=== PATIENT | female | born 1975 | race Caucasian/White ===

== ENCOUNTER 2017-01-21 14:07 | Inpatient (IN) | payer BC, MEDICARE ==
[~2017-01-21] VITALS: Ht 170.2 cm; Wt 93.8 kg
[2017-01-21 14:09] VITALS: BP 144/70; PULSE 98; RESP 20; TEMP 98.8; O2SAT 100
[2017-01-21 15:48] VITALS: BP 121/64; PULSE 87; RESP 18; TEMP 98.6; O2SAT 95
[2017-01-21] MEDS ORDERED: CELE20TA PO (16:39)
[2017-01-21] MEDS ORDERED: POTA-243 PO (16:39)
[2017-01-21] MEDS ORDERED: SPIRCAP INH (16:39)
[2017-01-21] MEDS ORDERED: LAMI200T PO (16:39)
[2017-01-21] MEDS ORDERED: PRIL20TA2 (16:39)
[2017-01-21 16:54] LABS: AUTOMATED NEUTROPHIL # 8.6 TH/MM3 (1.8-7.7); BASOPHIL # 0.1 TH/MM3 (0-0.2); BASOPHIL % 0.8 % (0.0-2.0); EOSINOPHIL # 0.2 TH/MM3 (0-0.4); HEMATOCRIT 42.3 % (35.0-46.0); HEMO FLAGS DIFF FINAL; LYMPH % 22.9 % (9.0-44.0); LYMPHOCYTE # 2.9 TH/MM3 (1.0-4.8); MEAN CORPUSCULAR HGB CONC 33.4 % (32.0-36.0); MONO % 5.4 % (0.0-8.0); NEUT % 68.9 % (16.0-70.0); PLATELET COUNT 220 TH/MM3 (150-450); RED BLOOD COUNT 4.55 MIL/MM3 (4.00-5.30); RED CELL DISTRIBUTION WIDTH 13.7 % (11.6-17.2); WHITE BLOOD COUNT 12.5 TH/MM3 (4.0-11.0)
[2017-01-21 17:17] LABS: AMPHETAMINE, URINE NEG (NEG); BARBITURATES, URINE NEG (NEG); COCAINE, URINE NEG (NEG)
[2017-01-21 17:21] LABS: ANION GAP 7 MEQ/L (5-15); BICARBONATE 27.5 MEQ/L (21.0-32.0); BLOOD UREA NITROGEN 4 MG/DL (7-18); CHLORIDE 109 MEQ/L (98-107); GLOMERULAR FILTRATION RATE 97 ML/MIN (>89); POTASSIUM 3.2 MEQ/L (3.5-5.1); SODIUM (NA) 143 MEQ/L (136-145)
--- NOTE | 2017-01-21 17:44 | PD ---
HPI Chief Complaint: Suicide Ideation/Attempt Time Seen by Provider: 17:44 Travel History International Travel<30 days: No Contact w/Intl Traveler<30days: No Traveled to known affect area: No History of Present Illness HPI 41-year-old female with history of depression and anxiety presents to emergency department voluntarily for psychiatric evaluation. 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 She has a plan to drink a large amount of alcohol, take pills, and "fall to sleep" in the bathtub. States this is how her mother followed through suicide. Denies any recent illnesses, fever, chills. Chest no other acute medically fit this time. PFSH Past Medical History Hx Anticoagulant Therapy: No Anxiety: Yes Depression: Yes Cardiac Catheterization: No Cardiovascular Problems: No Chemotherapy: No Cerebrovascular Accident: No Diabetes: No Diminished Hearing: No Musculoskeletal: Yes (ALS) Respiratory: No Tetanus Vaccination: < 5 Years Influenza Vaccination: Yes ?: Not LMP: 01/12/17 Menopausal: No Past Surgical History Abdominal Surgery: No Appendectomy: No Cardiac Surgery: No Cholecystectomy: Yes Coronary Artery Bypass Graft: No Coronary Stent: No Ear Surgery: No Endocrine Surgery: No Eye Surgery: No Genitourinary Surgery: No Gynecologic Surgery: No Hysterectomy: No Joint Replacement: No Mastectomy: No Neurologic Surgery: No Oral Surgery: No Prostatectomy: No Thoracic Surgery: No Tonsillectomy: Yes Tympanostomy Tube: No Valve Replacement: No Other Surgery: No Social History Alcohol Use: No Tobacco Use: No Substance Use: No Allergies-Medications (Allergen,Severity, Reaction): Coded Allergies: No Known Allergies (Unverified , 01/21/17) Reported Meds & Prescriptions Reported Meds & Active Scripts Active Reported Spiriva Handihaler (Tiotropium Inh) 18 Mcg Cap 18 Mcg INH DAILY 1 capsule = 18 mcg Prilosec (Omeprazole Magnesium) 20 Mg Tab Klor-Con 10 (Potassium Chloride) 10 Meq Tab 10 Meq PO DAILY Celexa (Citalopram Hydrobromide) 20 Mg Tab 20 Mg PO DAILY Lamictal (Lamotrigine) 200 Mg Tab 200 Mg PO BID Review of Systems Except as stated in HPI: all other systems reviewed are Neg Physical Exam Narrative GENERAL: Well-nourished female patient, in no acute distress SKIN: Warm and dry. HEAD: Atraumatic. Normocephalic. EYES: Pupils equal and round. No scleral icterus. No injection or drainage. ENT: No nasal bleeding or discharge. Mucous membranes pink and moist. NECK: Trachea midline. No JVD. CARDIOVASCULAR: Regular rate and rhythm. RESPIRATORY: No accessory muscle use. Clear to auscultation. Breath sounds equal bilaterally. GASTROINTESTINAL: Abdomen soft, non-tender, nondistended. Hepatic and splenic margins not palpable. MUSCULOSKELETAL: Extremities without clubbing, cyanosis, or edema. No obvious deformities. NEUROLOGICAL: Awake and alert. No obvious cranial nerve deficits. Motor grossly within normal limits. Five out of 5 muscle strength in the arms and legs. Normal speech. Data Data Last Documented VS Vital Signs Date Time Temp Pulse Resp B/P Pulse Ox O2 Delivery O2 Flow Rate FiO2 01/21/17 22:34 75 16 111/58 01/21/17 18:00 Room Air 01/21/17 15:48 98.6 95 Orders Complete Blood Count With Diff (01/21/17 15:22) Basic Metabolic Panel (Bmp) (01/21/17 15:22) Ed Urine Pregnancytest Poc (01/21/17 15:22) Psych Screen (01/21/17 15:22) Drug Screen, Random Urine (01/21/17 15:22) Alcohol (Ethanol) (01/21/17 15:22) Diet Regular Basic (01/21/17 Dinner) Potassium Chloride (Kcl) (01/21/17 17:45) Labs Laboratory Tests Test 01/21/17 01/21/17 15:20 16:00 Urine Opiates Screen NEG Urine Barbiturates Screen NEG Urine Amphetamines Screen NEG Urine Benzodiazepines Screen POS Urine Cocaine Screen NEG Urine Cannabinoids Screen NEG White Blood Count 12.5 TH/MM3 Red Blood Count 4.55 MIL/MM3 Hemoglobin 14.1 GM/DL Hematocrit 42.3 % Mean Corpuscular Volume 93.0 FL Mean Corpuscular Hemoglobin 31.0 PG Mean Corpuscular Hemoglobin 33.4 % Concent Red Cell Distribution Width 13.7 % Platelet Count 220 TH/MM3 Mean Platelet Volume 10.2 FL Neutrophils (%) (Auto) 68.9 % Lymphocytes (%) (Auto) 22.9 % Monocytes (%) (Auto) 5.4 % Eosinophils (%) (Auto) 2.0 % Basophils (%) (Auto) 0.8 % Neutrophils # (Auto) 8.6 TH/MM3 Lymphocytes # (Auto) 2.9 TH/MM3 Monocytes # (Auto) 0.7 TH/MM3 Eosinophils # (Auto) 0.2 TH/MM3 Basophils # (Auto) 0.1 TH/MM3 CBC Comment DIFF FINAL Differential Comment Sodium Level 143 MEQ/L Potassium Level 3.2 MEQ/L Chloride Level 109 MEQ/L Carbon Dioxide Level 27.5 MEQ/L Anion Gap 7 MEQ/L Blood Urea Nitrogen 4 MG/DL Creatinine 0.67 MG/DL Estimat Glomerular Filtration 97 ML/MIN Rate Random Glucose 78 MG/DL Calcium Level 8.3 MG/DL Ethyl Alcohol Level LESS THAN 3 MG/DL MDM Medical Decision Making Medical Screen Exam Complete: Yes Emergency Medical Condition: Yes Medical Record Reviewed: Yes Differential Diagnosis Mood disorder versus personality disorder versus adjustment reaction disorder Narrative Course 41-year-old female presents to emergency department voluntarily for psychiatric evaluation. Patient appears without distress. Patient is with mild hypokalemia 3.2. Toxicology is positive for benzodiazepine. EtOH is less than 3. Patient is medically cleared for psychiatric screening for further evaluation and disposition. Mental health screening discussed with the patient. Psychiatric screen ordered. Diagnosis Primary Impression: Depressed Qualified Code: F32.9 - Depression, unspecified depression type Additional Impression: Suicidal thoughts Condition: Stable Ann Woodson Jan 21, 2017 17:44
[2017-01-21] MEDS ORDERED: POTASSIUM CHLORIDE 20 MEQ CONTROLLED RELEASE TAB PO ONE (17:45)
[2017-01-21 18:00] VITALS: BP 119/57; PULSE 81; RESP 18
[2017-01-21 22:34] VITALS: BP 111/58; PULSE 75; RESP 16
[2017-01-22 02:26] VITALS: BP 113/56; PULSE 82; RESP 18; O2SAT 97
[2017-01-22 10:12] VITALS: BP 125/70; PULSE 76; RESP 18
[2017-01-22 14:00] VITALS: BP 136/60; PULSE 73; RESP 17
[2017-01-22] MEDS ORDERED: traZODone HCL 50 MG TAB PO PRN (16:30)
[2017-01-22] MEDS ORDERED: LORazepam 0.5 MG TAB PO PRN (16:30)
[2017-01-22] MEDS ORDERED: ALUMINUM/MAGNESIUM/SIMETH 30 ML CUP PO PRN (16:30)
[2017-01-22] MEDS ORDERED: ACETAMINOPHEN 325 MG TAB PO PRN (16:30)
[2017-01-22] MEDS ORDERED: LORazepam 1 MG TAB PO PRN (16:30)
[2017-01-22] MEDS ORDERED: MAGNESIUM HYDROXIDE SUSP 30 ML CUP PO PRN (16:30)
[2017-01-22] MEDS ORDERED: LORazepam 2 MG/ML VIAL IM PRN ×2 (16:30)
[2017-01-22] MEDS: TIOTROPIUM BROMIDE 18 MCG INH INH SCH (16:45)
--- NOTE | 2017-01-22 16:49 | HHI.HP ---
Provisional Diagnosis Admission Date [place] I. Major depression, single episode, severe, without psychotic features. Certification of Person's Competence To Provide Express and Informed Consent I have personally examined Madhuri Sampson , a person being served at [facility] on, Jan 22, 2017 16:37. Express and informed consent means consent voluntarily given in writing, by a competent person, after sufficient explanation and disclosure of the subject matter involved to enable the person to make a knowing and willful decision without any element of force, fraud, deceit, duress, or other form of constraint or coercion. This person is 18 years of age or older, is not now known to be incompetent to consent to treatment with a guardian advocate, and does not have a health care surrogate or proxy currently making medical treatment decisions. I have found this person to be one of the following: [X] Competent to provide express and informed consent, as defined above, for voluntary admission to this facility and is competent to provide express and informed consent for treatment. He/she has the consistent capacity to make well reasoned, willful, and knowing decisions concerning his or her medical or mental health treatment. The person fully and consistently understands the purpose of the admission for examination/placement and is fully capable of personally exercising all rights assured [place] Incompetent to provide express and informed consent to voluntary admission, and this is incompetent to provide express and informed consent to treatment. The person must be transferred to involuntary status and a petition for a guardian advocate filed with the Circuit Court. [] Refusing to provide express and informed consent to voluntary admission but is competent to provide express and informed consent for treatment. The person must be discharged or transferred to involuntary status. Form shall be completed within 24 hours of a person's arrival at the receiving facility and filed in the clinical record of each person: 1. Admitted on a voluntary basis 2. Permitted to provide express and informed consent to his/her own treatment 3. Allowed to transfer from involuntary to voluntary status 4. Prior to permitting a person to consent to his or her own treatment after having been previously found incompetent to consent to treatment. History of Present Illness Capacity: Has Capacity HPI This is a 41-year-old female who is being admitted voluntarily for multiple symptoms of depression and suicidality with plan. The patient reports that she has experienced several months of increasing depression with depressed mood, anhedonia, feelings of anxiety, feelings of guilt, feeling hopeless and helpless , social withdrawal, diminished energy, and suicidality. The patient currently has a plan of consuming alcohol and medication and then going to sleep to drown in her bathtub. Apparently she has ALS and this disease has been progressing, which is causing her more anxiety and greater depression. Her medications have not been helpful and include Celexa 20 mg per day and lamotrigine. The patient states she went to her psychiatrist, Dr. Valadez, in [place]. He wanted to start her on Haldol and see her in 30 days. The patient found this to be very disturbing and not empathetic. She would like to have her medication regimen adjusted and does not feel she can live the way she is at this point. She has not been consuming alcohol or taking illicit drugs. Review of Systems Except as stated in HPI: all other systems reviewed are Neg Past Psych History Psychological trauma history Patient denies a history of psychological trauma. She has been treated in the past on an outpatient basis by Dr. Valadez. Violence risk - others (6 mos) Minimal Violence risk - self (6 mos) High. Patient has a potentially terminal illness and is feeling hopeless, helpless and desperate. She has suicidal thinking with plan. Substance Abuse History Drugs/Alcohol past 12 months Patient denies a history of alcohol or drug abuse. Past Family Social History Coded Allergies: No Known Allergies (Unverified , 01/21/17) Reported Medications Tiotropium Inh (Spiriva Handihaler)18 Mcg Cap18 Mcg INH DAILY #30 CAP Ref 0 1 capsule = 18 mcg 01/21/17 Omeprazole Magnesium (Prilosec)20 Mg Tab 01/21/17 Potassium Chloride ER (Klor-Con 10)10 Meq Tab10 Meq PO DAILY #30 TAB Ref 0 01/21/17 Citalopram (Celexa)20 Mg Tab20 Mg PO DAILY #30 TAB Ref 0 01/21/17 Lamotrigine (Lamictal)200 Mg [id number] Mg PO BID #60 TAB Ref 0 01/21/17 Current Medications Medications (Trade) Dose Ordered Sig/Cam Route Start Time Stop Time Status Last Admin (Ativan) 1 mg Q6H PRN PO 01/22/17 16:30 UNV (Ativan Inj) 1 mg Q6H PRN IM 01/22/17 16:30 UNV (Ativan) 0.5 mg Q12H PRN PO 01/22/17 16:30 UNV (Ativan Inj) 0.5 mg Q12H PRN IM 01/22/17 16:30 UNV (Tylenol) 650 mg Q4H PRN PO 01/22/17 16:30 UNV (Milk Of Magnesia Liq) 30 ml DAILY PRN PO 01/22/17 16:30 UNV (Mag-Al Plus Susp Liq) 30 ml Q6H PRN PO 01/22/17 16:30 UNV (Desyrel) 50 mg HS PRN PO 01/22/17 16:30 UNV Family History Patient believes her family history is positive for depression and anxiety on her mother's side. Her mother committed suicide 5 years ago and one of her siblings approximately a year later. Social History As stated above, the patient's mother committed suicide approximately 5 years ago. This puts the patient at greater risk. She has a chronic and disabling disease, a at school, which may be terminal for her. She denies a history of alcohol or substance abuse. She is not employed. She does receive Medicaid and Medicare. She has limited family support as one of her siblings also . Patient's Strengths (min. 2) Verbal and has access to healthcare. Physical Exam GENERAL: SKIN: Warm and dry. HEAD: Normocephalic. EYES: No scleral icterus. No injection or drainage. NECK: Supple, trachea midline. No JVD or lymphadenopathy. CARDIOVASCULAR: Regular rate and rhythm without murmurs, gallops, or rubs. RESPIRATORY: Breath sounds equal bilaterally. No accessory muscle use. GASTROINTESTINAL: Abdomen soft, non-tender, nondistended. MUSCULOSKELETAL: No cyanosis, or edema. BACK: Nontender without obvious deformity. No CVA tenderness. Vital Signs Vital Signs Date Time Temp Pulse Resp B/P Pulse Ox O2 Delivery O2 Flow Rate FiO2 01/22/17 10:12 76 18 125/70 Room Air 01/22/17 02:26 97 01/21/17 15:48 98.6 Mental Status Examination Speech: Unremarkable Orientation: x3 Memory: Unremarkable Thought Process: Organized, Goal Directed Thought Content: Unremarkable Hallucination Type: None Attention and Concentration: Good Suicidal Ideation: Yes Previous Suicide Attempts: Yes Suicidal Plan Remarks Patient has detailed plan of how she will kill herself. Homicidal Ideation: No Previous Homicide Attempts: No Insight: Fair Judgment: Impulsive Affect: Anxious, Sad Mood: Sad, Anxious Motor Activity: Normal gait Assessment & Plan Problem List: (1) Severe major depression, single episode, without psychotic features ICD Code: F32.2 Assessment & Plan Estimated LOS: 7 days this physician believes the patient is at high risk for harming herself. She is feeling desperate, increasingly depressed and has a chronic and potentially terminal disease. Her medications have not been helping and her past psychiatrist has antagonized her by offering to put her on Haldol and see her in a month. The patient would like to be admitted and have her medications evaluated and changed to be more effective. This physician feels her Celexa is certainly at a low dose and not helping. Furthermore, the patient requires a workup including CBC, lipid panel, comprehensive metabolic panel, thyroid studies and vitamins B-12 and D studies. The patient may have an underlying infection which is contributing to her ALS and depression. The same is true for her thyroid studies, and if she is hypothyroid, this too may be contributing to her depression. She will receive an EKG prior to instituting different antipsychotic or mood stabilizing medications to make sure her cardiac conduction system has not adversely affected. This physician is obtaining a hospitalist consult to help us manage her ALS. I am also ordering a occupational therapy consult to determine what her functionality is currently and if a lack of functionality is also contributing to her depression. This physician spoke with the patient's nurse about her recent behavior and learned the patient is indeed consistently suicidal. Finally, this physician is requesting case management to become involved to obtain further history from the family and to look at what other resources might be available to assist this patient. Sanford Gutierrez MD Jan 22, 2017 16:49
[2017-01-22 16:56] VITALS: BP 136/60; TEMP 98
[2017-01-22 18:05] VITALS: BP 124/60; PULSE 69; RESP 18; TEMP 98.1
[2017-01-22] MEDS: POTASSIUM CHLORIDE 10 MEQ CONTROLLED RELEASE TAB PO SCH (18:13)
[2017-01-22] MEDS: lamoTRIgine 100 MG TAB PO SCH (20:45)
[2017-01-22] MEDS: FAMOTIDINE 20 MG TAB PO SCH (20:45)
[2017-01-23 06:54] VITALS: BP 138/94; PULSE 73; RESP 16; TEMP 97.6; O2SAT 95
[2017-01-23 08:13] LABS: AUTOMATED NEUTROPHIL # 8.7 TH/MM3 (1.8-7.7); BASOPHIL # 0.1 TH/MM3 (0-0.2); EOSINOPHIL # 0.3 TH/MM3 (0-0.4); EOSINOPHIL % 2.2 % (0.0-4.0); HEMATOCRIT 45.2 % (35.0-46.0); HEMO FLAGS DIFF FINAL; LYMPH % 29.5 % (9.0-44.0); LYMPHOCYTE # 4.1 TH/MM3 (1.0-4.8); MEAN CELL VOLUME 92.4 FL (80.0-100.0); MEAN CORPUSCULAR HEMOGLOBIN 30.5 PG (27.0-34.0); MONO % 5.1 % (0.0-8.0); NEUT % 62.2 % (16.0-70.0); PLATELET COUNT 233 TH/MM3 (150-450); RED BLOOD COUNT 4.89 MIL/MM3 (4.00-5.30); RED CELL DISTRIBUTION WIDTH 13.5 % (11.6-17.2)
[2017-01-23 08:36] LABS: ALT (GPT) 24 U/L (10-53); ANION GAP 8 MEQ/L (5-15); AST (GOT) 12 U/L (15-37); BICARBONATE 24.3 MEQ/L (21.0-32.0); BLOOD UREA NITROGEN 7 MG/DL (7-18); CHLORIDE 109 MEQ/L (98-107); GLOMERULAR FILTRATION RATE 80 ML/MIN (>89); POTASSIUM 3.7 MEQ/L (3.5-5.1); SODIUM (NA) 141 MEQ/L (136-145)
[2017-01-23] MEDS: FAMOTIDINE 20 MG TAB PO SCH (08:59)
[2017-01-23] MEDS: POTASSIUM CHLORIDE 10 MEQ CONTROLLED RELEASE TAB PO SCH (08:59)
[2017-01-23] MEDS: lamoTRIgine 100 MG TAB PO SCH (08:59)
[2017-01-23] MEDS: TIOTROPIUM BROMIDE 18 MCG INH INH SCH (08:59)
[2017-01-23] MEDS ORDERED: CITALOPRAM HYDROBROMIDE 20 MG TAB PO SCH (09:00)
[2017-01-23 09:01] LABS: ALKALINE PHOSPHATASE 110 U/L (45-117); HDL CHOLESTEROL 38.7 MG/DL (40.0-60.0); LDL CHOLESTEROL 106 MG/DL (0-99); TOTAL BILIRUBIN ADULT 0.4 MG/DL (0.2-1.0)
--- NOTE | 2017-01-23 11:01 | EKG ---
Date Performed: 01/22/2017 Time Performed: 20:14:02 PTAGE: 41 years EKG: SINUS BRADYCARDIA BORDERLINE ECG NO PREVIOUS TRACING DOCTOR: Harry Ramirez Interpretating Date/Time 01/23/2017 10:58:31
[2017-01-23 11:55] LABS: HEMOGLOBIN A1a 0.7 %; HEMOGLOBIN A1b 1.4 %; HEMOGLOBIN Ao 87.7 %; HEMOGLOBIN LA1C 1.9 %; HEMOGLOBIN P3 3.1 %
--- NOTE | 2017-01-23 12:23 | HHI.DS ---
Psychiatry Discharge Summary Inpatient Psychiatric care?: Yes Advance Directive: No Reason Not Provided: Due to Patient Condition Mental Health AdvanceDirective: No Health Care Proxy: No Admission Admission Date Jan 22, 2017 at 16:31 Admission Diagnosis: (1) Severe major depression, single episode, without psychotic features ICD Code: F32.2 Brief History This is a 41-year-old female who is being admitted voluntarily for multiple symptoms of depression and suicidality with plan. The patient reports that she has experienced several months of increasing depression with depressed mood, anhedonia, feelings of anxiety, feelings of guilt, feeling hopeless and helpless , social withdrawal, diminished energy, and suicidality. The patient currently has a plan of consuming alcohol and medication and then going to sleep to drown in her bathtub. Apparently she has ALS and this disease has been progressing, which is causing her more anxiety and greater depression. Her medications have not been helpful and include Celexa 20 mg per day and lamotrigine. The patient states she went to her psychiatrist, Dr. Valadez, in [place]. He wanted to start her on Haldol and see her in 30 days. The patient found this to be very disturbing and not empathetic. She would like to have her medication regimen adjusted and does not feel she can live the way she is at this point. She has not been consuming alcohol or taking illicit drugs. Tobacco Use In Past 30 Days: 4 or Less Cigarettes/Day Alcohol Use: Never Hospital Course Patient seen today with counselor Zoraida and nurse Norma, patient calm cooperative stating she was under increased stress due to some medication adjustments by her psychiatrist. Patient acknowledges being bipolar, suffering from this for a number of years the number of admissions. She denies any suicidal ideation intent or plan with this. Denies any alcohol or drug use with this. Patient is has a good relationship with her was a night nurse/rn digestive. She has talked with the he has made an appointment with her a week from today with a psychiatrist in the community and also appointment with therapist for cbt type treatment. Patient states she has a supply for medication at home she is satisfied with this at the present time. The counselor did also talk to her , he is quite willing have her come home take responsibility for monitoring of medication and her follow-up appointments. Thus at the present time I feel patient does not meet criteria for inpatient psychiatric hospitalization will discharged patient today to her family, no Rx by me, she may continue her own scheduled medications at home follow-up next week with private psychiatrist and counselor Results Blood Pressure 138 / 94 Vital Signs Date Time Temp Pulse Resp B/P Pulse Ox O2 Delivery O2 Flow Rate FiO2 01/23/17 06:54 97.6 73 16 138/94 95 01/22/17 14:00 Nasal Cannula Laboratory Tests Test 01/21/17 01/21/17 01/23/17 15:20 16:00 07:56 Urine Benzodiazepines Screen POS (NEG) White Blood Count 12.5 TH/MM3 14.0 TH/MM3 (4.0-11.0) (4.0-11.0) Neutrophils # (Auto) 8.6 TH/MM3 8.7 TH/MM3 (1.8-7.7) (1.8-7.7) Potassium Level 3.2 MEQ/L (3.5-5.1) Chloride Level 109 MEQ/L 109 MEQ/L (98-107) (98-107) Blood Urea Nitrogen 4 MG/DL (7-18) Calcium Level 8.3 MG/DL (8.5-10.1) Estimat Glomerular Filtration 80 ML/MIN (>89) Rate Aspartate Amino Transf 12 U/L (15-37) (AST/SGOT) LDL Cholesterol 106 MG/DL (0-99) HDL Cholesterol 38.7 MG/DL (40.0-60.0) Laboratory Results Test 01/23/17 07:56 Hemoglobin A1c 4.7 % (4.3-6.0) Triglycerides Level 146 MG/DL (42-150) Cholesterol Level 174 MG/DL (120-200) LDL Cholesterol 106 MG/DL (0-99) HDL Cholesterol 38.7 MG/DL (40.0-60.0) Summary of Major Lab Results Urine toxicology positive for benzodiazepines Summary of Procedures None done Pending results at discharge: No Medications # of Antipsychotic meds at D/C: 0 Approp Antipsych med options 1 - Minimum of three failed multiple trials of monotherapy. 2 - Documented plan to taper to monotherapy due to previous use of multiple meds OR cross-taper in progress at D/C. 3 - Documentation of augmentation of Clozapine. 4 - Justification other than those listed in allowable values 1-3, document here : Discharge Discharge Date: Jan 23, 2017 Discharge Diagnosis: (1) Bipolar disorder current episode depressed Diagnosis: Principal ICD Code: F31.30 Mental Status Exam at Disch Alert oriented white female calm cooperative, normal active, some flexion issues secondary to her als. Speech rate and rhythm are within normal limits though no formal thought disorders, patient's mood is euthymic, will good range intensity of her affect. There are no auditory or visual hallucinations. No delusions. Insight and judgment is fair. Cognition grossly intact. Pt Condition on Discharge: Stable Discharge Disposition: Discharge Home Discharge Instructions Diet Instructions: As Tolerated, No Restrictions Activities you can perform: Regular-No Restrictions Scheduled Appointment: Private Psychiatrist (and private counselor) Discharge Time > 30 minutes Discharge/Advance Care Plan Health Problems: (1) Severe major depression, single episode, without psychotic features Goals to promote your health * To prevent worsening of your condition and complications * To maintain your health at the optimal level Directions to meet your goals Take your medications as prescribed Follow your dietary instruction Follow activity as directed Keep your appointments as scheduled Take your immunizations and boosters as scheduled If your symptoms worsen call your PCP, if no PCP go to Urgent Care Center or Emergency Room For 13/03 questions related to your inpatient stay or results of tests pending at discharge, please contact Dr. Yoav Khalil at Smoking is Dangerous to Your Health. Avoid second hand smoking Yoav Khalil MD Jan 23, 2017 12:23
--- NOTE | 2017-01-23 14:34 | PD.CONS ---
HPI Service [facility] Hospitalists Consult Requested By Psychiatric services Reason for Consult Medical management Primary Care Physician No Primary Care Physician Diagnoses: History of Present Illness Written by Tea Baron PA-C acting as scribe for Dr. Barber on 01/23/17 at 14 :05. 41yo female with PMHX of ALS diagnosed in 2011, stress induced seizures and Bipolar disorder admitted to the psychiatric unit due to suicidal ideation. Hospitalist services consulted for medical management. Patient seen and examined today. She is doing much better since her arrival and is actually being discharged today. In regards to her ALS, she is followed by a neurologist in [place] and has an upcoming appointment on February 22 at [facility]. When asked what led to her increased suicidality, patient believes it was due to an interaction between her Dilantin and other Bipolar medications. At present, she denies any complaints. She already has outpatient appointments scheduled with a psychiatrist and behavioral therapist. Review of Systems Except as stated in HPI: all other systems reviewed are Neg Past Family Social History Allergies: Coded Allergies: No Known Allergies (Unverified , 01/21/17) Past Medical History ALS diagnosed in 2011 Depression Anxiety Stress induced seizures Past Surgical History Cholecystectomy Tonsillectomy Reported Medications Tiotropium Inh (Spiriva Handihaler)18 Mcg Cap18 Mcg INH DAILY #30 CAP Ref 0 1 capsule = 18 mcg 01/21/17 Omeprazole Magnesium (Prilosec)20 Mg Tab 01/21/17 Potassium Chloride ER (Klor-Con 10)10 Meq Tab10 Meq PO DAILY #30 TAB Ref 0 01/21/17 Citalopram (Celexa)20 Mg Tab20 Mg PO DAILY #30 TAB Ref 0 01/21/17 Lamotrigine (Lamictal)200 Mg Naq292 Mg PO BID #60 TAB Ref 0 01/21/17 Active Ordered Medications Current Medications Medications (Trade) Dose Ordered Sig/Cam Route Start Time Stop Time Status Last Admin (Ativan) 1 mg Q6H PRN PO 01/22/17 16:30 (Ativan Inj) 1 mg Q6H PRN IM 01/22/17 16:30 (Ativan) 0.5 mg Q12H PRN PO 01/22/17 16:30 (Ativan Inj) 0.5 mg Q12H PRN IM 01/22/17 16:30 (Tylenol) 650 mg Q4H PRN PO 01/22/17 16:30 (Milk Of Magnesia Liq) 30 ml DAILY PRN PO 01/22/17 16:30 (Mag-Al Plus Susp Liq) 30 ml Q6H PRN PO 01/22/17 16:30 (Desyrel) 50 mg HS PRN PO 01/22/17 16:30 01/22/17 21:33 (CeleXA) 20 mg DAILY PO 01/23/17 09:00 01/23/17 08:59 (LaMICtal) 200 mg BID PO 01/22/17 21:00 01/23/17 08:59 (KCl) 10 meq DAILY PO 01/22/17 16:45 01/23/17 08:59 (Spiriva Inh) 18 mcg DAILY INH 01/22/17 16:45 (Pepcid) 20 mg BID PO 01/22/17 21:00 01/23/17 08:59 Family History Mother - Bipolar disorder, , suicide 5yrs ago Father - , MVA Social History Patient reports tobacco use of 1ppd. She denies any EtOH consumption or illicit drug use. Patient is and lives with her . Physical Exam Vital Signs Vital Signs Date Time Temp Pulse Resp B/P Pulse Ox O2 Delivery O2 Flow Rate FiO2 01/23/17 06:54 97.6 73 16 138/94 95 01/22/17 18:05 98.1 69 18 124/60 01/22/17 16:56 98.0 18 74 136/60 99 Physical Exam GENERAL: This is a well-nourished, well-developed patient, in no apparent distress. Awake and alert. Appears comfortable. SKIN: No rashes, ecchymoses or lesions. Cool and dry. HEAD: Atraumatic. Normocephalic. No temporal or scalp tenderness. EYES: Pupils equal round and reactive. Extraocular motions intact. No scleral icterus. No injection or drainage. ENT: Nose without bleeding, purulent drainage or septal hematoma. Throat without erythema, tonsillar hypertrophy or exudate. Uvula midline. Airway patent. NECK: Trachea midline. No JVD or lymphadenopathy. Supple, nontender, no meningeal signs. CARDIOVASCULAR: Regular rate and rhythm without murmurs, gallops, or rubs. RESPIRATORY: Clear to auscultation. Breath sounds equal bilaterally. No wheezes , rales, or rhonchi. GASTROINTESTINAL: Abdomen soft, non-tender, nondistended. No hepato-splenomegaly , or palpable masses. No guarding. MUSCULOSKELETAL: Extremities without cyanosis, or edema. No joint tenderness, effusion, or edema noted. No calf tenderness. NEUROLOGICAL: Awake and alert. Able to move all extremities. Bilateral hand contractures noted with obvious bilateral thenar atrophy. Normal speech. Laboratory Laboratory Tests Test 01/23/17 07:56 White Blood Count 14.0 Red Blood Count 4.89 Hemoglobin 14.9 Hematocrit 45.2 Mean Corpuscular Volume 92.4 Mean Corpuscular Hemoglobin 30.5 Mean Corpuscular Hemoglobin 33.0 Concent Red Cell Distribution Width 13.5 Platelet Count 233 Mean Platelet Volume 10.0 Neutrophils (%) (Auto) 62.2 Lymphocytes (%) (Auto) 29.5 Monocytes (%) (Auto) 5.1 Eosinophils (%) (Auto) 2.2 Basophils (%) (Auto) 1.0 Neutrophils # (Auto) 8.7 Lymphocytes # (Auto) 4.1 Monocytes # (Auto) 0.7 Eosinophils # (Auto) 0.3 Basophils # (Auto) 0.1 CBC Comment DIFF FINAL Differential Comment Sodium Level 141 Potassium Level 3.7 Chloride Level 109 Carbon Dioxide Level 24.3 Anion Gap 8 Blood Urea Nitrogen 7 Creatinine 0.79 Estimat Glomerular Filtration 80 Rate Random Glucose 101 Hemoglobin A1c 4.7 Calcium Level 8.7 Total Bilirubin 0.4 Aspartate Amino Transf 12 (AST/SGOT) Alanine Aminotransferase 24 (ALT/SGPT) Alkaline Phosphatase 110 Total Protein 7.1 Albumin 3.5 Triglycerides Level 146 Cholesterol Level 174 LDL Cholesterol 106 HDL Cholesterol 38.7 Cholesterol/HDL Ratio 4.49 Vitamin B12 Level 459 25-Hydroxy Vitamin D Total 32.5 Thyroid Stimulating Hormone 1.420 3rd Gen Result Diagram: 01/23/17 0756 01/23/17 0756 Assessment and Plan Assessment and Plan 41yo female with PMHX of ALS diagnosed in 2011, stress induced seizures and Bipolar disorder admitted to the psychiatric unit due to suicidal ideation. Hospitalist services consulted for medical management. Depression/Bipolar/Suicidal Ideation - Management per psychiatric team - patient has outpatient psychiatric and behavioral therapy appointments already scheduled - increased depression possibly due to medication interaction with Dilantin and increase in Lamictal dosage. Patient no longer on Dilantin. ALS - diagnosed in 2011 - slow progression - patient sees neurologist in [place] and has an upcoming appt at [facility] on February 22 - she is looking into attending an ALS support group through [facility] in the near future H/O stress induced seizures - patient reports full workup at [facility] - last seizure activity was 3 weeks ago - she no longer has her license Leukocytosis - likely reactive - recommend follow up with PCP as outpatient DVT prophylaxis - patient is ambulatory This note was transcribed by miguel angel Baron PA-C. I, Dr. Randy Barber personally performed the history, physical exam, and medical decision making; and confirmed the accuracy of the information in the transcribed note. Authenticated by Dr. Randy Barber on 01/23/17 at 17:10. Tea Baron Jan 23, 2017 14:34 Jorge Barber DO Jan 23, 2017 17:10
--- NOTE | 2017-01-23 15:53 | PD.TTN ---
Present for Treatment Team Treatment Team Staff: Provider (Dr Khalil), Nurse (Norma), Psych Therapist (Zoraida Coulter ), Occupational Therapist (Group Specialist Hattie) Patient Problems 1. Discharge planning 2. Medication compliance 3. Knowledge deficit 4. Lack of coping skills Progress Toward Goals Provider Input: Provider reviewed record Nurse Input: Pt has been calm and pleasant Psych Therapist Input: Pt reports wanting a med adjustment and her provider did not care to see her outpatient was able to change providers Occupational Therapist Input: Has just gotten here pleasant and engaged Zoraida Coulter [facility] Jan 23, 2017 15:52
== END 2017-01-23 14:45 | disposition home or self-care (01) | DRG 885 ==
LOC: NEPJ 14:07 → NEDA 01-22 16:31 → H260 01-22 17:15
PROVIDERS: ADMIT Psychiatry & Neurology Psychiatry; ATTEND Psychiatry & Neurology Psychiatry
DX: F31.30 Bipolar disorder, current episode depressed, mild or moderate severity, unspecified (principal); G12.21 Amyotrophic lateral sclerosis; G40.89 Other seizures; T42.0X5A Adverse effect of hydantoin derivatives, initial encounter; Z81.8 Family history of other mental and behavioral disorders; F17.210 Nicotine dependence, cigarettes, uncomplicated
CPT/HCPCS: 80048; 80053; 80061; 80307; 82306; 82607; 83036; 84443; 84703; 85025; 93005